=== PATIENT | male | born 1965 | race Caucasian/White ===

== ENCOUNTER 2022-11-21 10:02 | Emergency (ER) | payer MEDICAID ==
[~2022-11-21] VITALS: Ht 180.3 cm; Wt 107.0 kg
[2022-11-21 10:12] VITALS: BP 151/83
[2022-11-21] MEDS ORDERED: HYDROCODONE/ACETAMINOPHEN 5/325MG TABLET PO ONE (10:30)
[2022-11-21 10:46] LABS: BASOPHILS % 0.6 % (0.0-2.0); EOSINOPHILS % 14.1 % (0.0-5.0); HEMATOCRIT. 41.3 % (42.0-52.0); HEMOGLOBIN. 14.6 g/dL (14.0-18.0); MEAN CORPUSCULAR HEMOGLOBIN 32.5 pg (28.0-32.0); MEAN PLATELET VOLUME 7.6 fl (7.4-10.4); NEUTROPHILS % 54.3 % (40.0-76.0); PLATELET 265 x1000/uL (130-400); RED BLOOD CELL COUNT 4.49 mill/uL (4.7-6.1); RED CELL DISTRIBUTION WIDTH 13.1 % (11.6-14.6)
[2022-11-21 10:54] LABS: CHLORIDE 105 mEq/L (98-107)
[2022-11-21] MEDS ORDERED: POTASSIUM CHLORIDE 20MEQ TABLET SR PO ONE (11:30)
[2022-11-21] MEDS ORDERED: DICL75TA5 MT (11:44)
[2022-11-21] MEDS ORDERED: HYDR-4001 MT (11:44)
== END 2022-11-21 12:12 | disposition home or self-care (01) ==
LOC: ER 10:02
DX: M10.9 Gout, unspecified (principal)
CPT/HCPCS: 36415; 73590; 73630; 80053; 84550; 85025; 85651; 93971; 99285